=== PATIENT | female | born 1980 | race Native Hawaiian/Other Pacific Islander ===

== ENCOUNTER 2016-04-11 01:34 | Emergency (ER) | payer OTHER ==
[~2016-04-11] VITALS: Ht 162.6 cm; Wt 74.8 kg
[2016-04-11 02:23] LABS: POTASSIUM 3.4 mmol/L (3.6-5.2); SODIUM 136 mmol/L (136-145)
[2016-04-11 02:40] LABS: PLATELET COUNT 280 K/uL (152-353)
[2016-04-11 03:04] VITALS: BP 144/88; TEMP 97.8
== END 2016-04-11 03:05 | disposition home or self-care (01) ==
LOC: ED 01:34
DX: B96.81 Helicobacter pylori [H. pylori] as the cause of diseases classified elsewhere (principal); K29.70 Gastritis, unspecified, without bleeding
CPT/HCPCS: 36415; 80053; 81000; 82150; 82550; 83690; 84484; 85027; 86318; 99283

== ENCOUNTER 2016-09-19 08:49 | Outpatient (CLI) | payer OTHER | END 2016-09-19 10:00 | disposition home or self-care (01) | LOC: NM 08:49 | DX: R07.89 Other chest pain (principal) | CPT/HCPCS: A9500 ==